=== PATIENT | female | born 1980 | race Caucasian/White ===

== ENCOUNTER 2018-04-13 18:40 | Emergency (ER) | payer OTHER ==
[~2018-04-13] VITALS: Ht 160 cm; Wt 68.0 kg
[~2018-04-13 18:40] MED LIST: ADDERALL20 MG PO; ATIVAN1 MG PO; PROZAC40 MG PO
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
[2018-04-13] MEDS ORDERED: IBUPROFEN800 M1 PO ×2 (20:16→20:21)
[2018-04-13] MEDS ORDERED: CYCLOBENZAPRINE10 M1 PO ×2 (20:16→20:21)
[2018-04-13 20:28] VITALS: BP 138/77
== END 2018-04-13 20:29 ==
LOC: ERH 18:40
DX: S20.212A Contusion of left front wall of thorax, initial encounter (principal); S76.012A Strain of muscle, fascia and tendon of left hip, initial encounter; V49.40XA Driver injured in collision with unspecified motor vehicles in traffic accident, initial encounter; Y92.9 Unspecified place or not applicable; F41.9 Anxiety disorder, unspecified; F32.9 Major depressive disorder, single episode, unspecified; F98.8 Other specified behavioral and emotional disorders with onset usually occurring in childhood and adolescence
CPT/HCPCS: 71100-LT; 73502-LT; 81025